=== PATIENT | male | born 1960 | race African-American/Black ===

== ENCOUNTER 2016-09-15 11:46 | Inpatient (IN) | payer OTHER ==
[~2016-09-15] VITALS: Ht 172.7 cm; Wt 88.4 kg
[~2016-09-15 11:46] MED LIST: ALDACTONE25 MG PO; COREG3.125 M1 PO; FURO40I IV; K-DUR20 MEQ PO; LASIX20 MG PO; LISINOPRIL2.5 MG PO; PERCOCET 5/31 TABLET PO; SIMVASTATIN5 MG PO; ZANTAC300 MG PO
[2016-09-15 13:14] LABS: HEMATOCRIT 50.8 % (38.0-50.0); MCH 26.3 PG (29.0-34.0); MCHC 32.9 G/DL (30.0-36.0); MCV 80.1 FL (86-99); RBC DIS.WIDTH-CV 18.6 % (11.8-14.6); RBC DIS.WIDTH-SD 49.9 % (39-53); RED BLOOD COUNT 6.34 M/uL (4.00-5.50); WHITE BLOOD COUNT 9.9 K/uL (4.1-10.2)
[2016-09-15 13:24] LABS: CHLORIDE 108 mEq/L (99-109); POTASSIUM 3.4 mEq/L (3.7-5.4); SODIUM 138 mEq/L (136-147)
[2016-09-15 13:26] LABS: GLUCOSE 89 mg/dL (70-99)
[2016-09-15 13:27] LABS: ANION GAP 9 MEQ/L (2-14)
[2016-09-15 13:28] LABS: TOTAL BILIRUBIN 1.6 mg/dL (0.0-1.0)
[2016-09-15 13:30] LABS: ALKALINE PHOSPHATASE 98 IU/L (3-129); GFR ESTIMATE (CALCULATED) > 59 mL/min/
[2016-09-15 13:31] LABS: UREA NITROGEN (BUN) 18 mg/dL (9-23)
[2016-09-15 13:32] LABS: DIRECT BILIRUBIN 0.7 mg/dL (0.0-0.3)
[2016-09-15 13:33] LABS: LIPASE 31 U/L (1.0-51.0)
[2016-09-15 13:39] LABS: TROP-I INTERPRETATION NEGATIVE; TROPONIN-I 0.19 ng/mL (0.0-0.30)
[2016-09-15 15:08] LABS: MEAN PLAT.VOLUME 10.7 uM^3 (9.0-12.4); PLAT.SUFFICIENCY ADEQUATE; PLATELET COUNT 265 K/uL (156-360)
[2016-09-15 15:24] LABS: TROP-I INTERPRETATION INDETERMINATE; TROPONIN-I 0.31 ng/mL (0.0-0.30)
[2016-09-15 15:45] LABS: INTER. NORMALIZED RATIO 1.4; PTT 28.5 (25-32)
[2016-09-15] MEDS ORDERED: ASPIRIN81 M2 PO (16:44)
[2016-09-15] MEDS ORDERED: COLCRYS0.6 MG PO (16:44)
[2016-09-15] MEDS ORDERED: ALLOPURINOL300 MG PO (16:45)
[2016-09-15] MEDS ORDERED: AMIODARONE HCL200 MG PO (16:45)
[2016-09-15] MEDS ORDERED: A AND D OINTM42.5 GM TP (16:46)
[2016-09-15] MEDS ORDERED: VITAMIN E TP (16:47)
[2016-09-15] MEDS ORDERED: PRINIVIL5 MG PO (17:29)
[2016-09-15] MEDS ORDERED: FUROSEMIDE40 MG PO (17:30)
[2016-09-15] MEDS ORDERED: KLOR-CON M2020 MEQ PO (17:30)
[2016-09-15 21:35] VITALS: BP 108/71
[2016-09-15 22:12] LABS: TROP-I INTERPRETATION INDETERMINATE; TROPONIN-I 0.47 ng/mL (0.0-0.30)
[2016-09-15 23:47] VITALS: BP 119/82
[2016-09-16] VITALS (7 sets, daily range): BP systolic 80–122; BP diastolic 56–85
[2016-09-16 07:10] LABS: HEMATOCRIT 46.4 % (38.0-50.0); MCH 26.3 PG (29.0-34.0); MCHC 32.8 G/DL (30.0-36.0); MCV 80.1 FL (86-99); MEAN PLAT.VOLUME 11.6 uM^3 (9.0-12.4); PLATELET COUNT 277 K/uL (156-360); RBC DIS.WIDTH-CV 18.6 % (11.8-14.6); RBC DIS.WIDTH-SD 50.3 % (39-53); RED BLOOD COUNT 5.79 M/uL (4.00-5.50); WHITE BLOOD COUNT 10.1 K/uL (4.1-10.2)
[2016-09-16 07:32] LABS: TROP-I INTERPRETATION NEGATIVE; TROPONIN-I 0.29 ng/mL (0.0-0.30)
[2016-09-16 07:33] LABS: ANION GAP 10 MEQ/L (2-14); CHLORIDE 107 MEQ/L (99-109); GFR ESTIMATE (CALCULATED) > 59 mL/min/; GLUCOSE 77 mg/dL (70-99); POTASSIUM 3.9 MEQ/L (3.7-5.4); SAMPLE HEMOLYSIS CHECK 0; SAMPLE ICTERIC CHECK 0; SAMPLE LIPEMIA CHECK 0; SODIUM 140 MEQ/L (136-147); UREA NITROGEN (BUN) 20 mg/dL (9-23)
[2016-09-16 17:55] LABS: ADD MIUA? NO; BILIRUBIN NEGATIVE; BLOOD NEGATIVE; GLUCOSE (STRIP) NEGATIVE; KETONES NEGATIVE; LEUKOCYTES NEGATIVE; NITRITE NEGATIVE; PROTEIN (STRIP) NEGATIVE; SPECIFIC GRAVITY 1.018 (1.000-1.030)
[2016-09-16 18:01] LABS: COLOR DK YELLOW ((YELLOW))
[2016-09-17] VITALS (18 sets, daily range): BP systolic 90–121; BP diastolic 60–87
[2016-09-17 06:08] LABS: BASOPHIL COUNT 0.1 K/uL (0-0.1); EOSINOPHIL (%) 4.1 % (0-5); EOSINOPHIL COUNT 0.4 K/uL (0-0.3); HEMATOCRIT 47.6 % (38.0-50.0); IMMATURE GRANULOCYTE (%) 0.6 % (0.0-0.7); IMMATURE GRANULOCYTE COUNT 0.1 K/uL; INSTRUMENT ABS NEUTROPHIL CT 7.8 K/uL; LYMPHOCYTE COUNT 1.4 K/uL (1.0-2.8); MCH 26.6 PG (29.0-34.0); MCHC 33.2 G/DL (30.0-36.0); MCV 80.1 FL (86-99); MEAN PLAT.VOLUME 11.1 uM^3 (9.0-12.4); MONOCYTE (%) 5.1 % (3-12); MONOCYTE COUNT 0.5 K/uL (0-0.8); NEUTROPHIL (%) 75.6 % (45-76); NEUTROPHIL COUNT 7.8 K/uL (1.8-6.4); PLATELET COUNT 297 K/uL (156-360); RBC DIS.WIDTH-CV 18.6 % (11.8-14.6); RBC DIS.WIDTH-SD 49.4 % (39-53); RED BLOOD COUNT 5.94 M/uL (4.00-5.50); WHITE BLOOD COUNT 10.3 K/uL (4.1-10.2)
[2016-09-17 06:45] LABS: ANION GAP 9 MEQ/L (2-14); CHLORIDE 109 MEQ/L (99-109); GFR ESTIMATE (CALCULATED) > 59 mL/min/; GLUCOSE 79 mg/dL (70-99); SAMPLE HEMOLYSIS CHECK 0; SAMPLE ICTERIC CHECK 0; SAMPLE LIPEMIA CHECK 0; SODIUM 138 MEQ/L (136-147); UREA NITROGEN (BUN) 27 mg/dL (9-23)
[2016-09-17 06:52] LABS: POTASSIUM 4.8 MEQ/L (3.7-5.4)
[2016-09-17 15:56] LABS: METH RESISTANT S AUREUS PCR NEGATIVE (NEGATIVE)
[2016-09-17 16:07] LABS: PROBE CHECK PASS; SPECIMEN PROCESSING CONTROL PASS
[2016-09-17 16:46] LABS: ANION GAP 8 MEQ/L (2-14); CHLORIDE 109 MEQ/L (99-109); GFR ESTIMATE (CALCULATED) 58 mL/min/; GLUCOSE 101 mg/dL (70-99); POTASSIUM 4.3 MEQ/L (3.7-5.4); SAMPLE HEMOLYSIS CHECK 0; SAMPLE ICTERIC CHECK 0; SAMPLE LIPEMIA CHECK 0; SODIUM 138 MEQ/L (136-147); UREA NITROGEN (BUN) 27 mg/dL (9-23)
[2016-09-18] VITALS (24 sets, daily range): BP systolic 100–135; BP diastolic 54–92
[2016-09-18 06:03] LABS: HEMATOCRIT 46.2 % (38.0-50.0); MCH 26.1 PG (29.0-34.0); MCHC 32.7 G/DL (30.0-36.0); MCV 79.8 FL (86-99); MEAN PLAT.VOLUME 10.7 uM^3 (9.0-12.4); PLATELET COUNT 251 K/uL (156-360); RBC DIS.WIDTH-CV 18.4 % (11.8-14.6); RED BLOOD COUNT 5.79 M/uL (4.00-5.50); WHITE BLOOD COUNT 10.8 K/uL (4.1-10.2)
[2016-09-18 09:36] LABS: ANION GAP 9 MEQ/L (2-14); CHLORIDE 106 MEQ/L (99-109); GFR ESTIMATE (CALCULATED) > 59 mL/min/; GLUCOSE 73 mg/dL (70-99); MAGNESIUM 1.7 mg/dl (1.3-2.7); POTASSIUM 4.4 MEQ/L (3.7-5.4); SAMPLE HEMOLYSIS CHECK 0; SAMPLE ICTERIC CHECK 0; SAMPLE LIPEMIA CHECK 0; SODIUM 138 MEQ/L (136-147); UREA NITROGEN (BUN) 26 mg/dL (9-23)
[2016-09-18 18:43] LABS: ANION GAP 9 MEQ/L (2-14); CHLORIDE 103 MEQ/L (99-109); GFR ESTIMATE (CALCULATED) > 59 mL/min/; GLUCOSE 68 mg/dL (70-99); POTASSIUM 4.4 MEQ/L (3.7-5.4); SAMPLE HEMOLYSIS CHECK 0; SAMPLE ICTERIC CHECK 0; SAMPLE LIPEMIA CHECK 0; SODIUM 136 MEQ/L (136-147); UREA NITROGEN (BUN) 24 mg/dL (9-23)
[2016-09-19] VITALS (21 sets, daily range): BP systolic 98–133; BP diastolic 65–93
[2016-09-19 06:29] LABS: ANION GAP 9 MEQ/L (2-14); CHLORIDE 103 MEQ/L (99-109); GFR ESTIMATE (CALCULATED) > 59 mL/min/; GLUCOSE 79 mg/dL (70-99); POTASSIUM 4.5 MEQ/L (3.7-5.4); SAMPLE HEMOLYSIS CHECK 0; SAMPLE ICTERIC CHECK 0; SAMPLE LIPEMIA CHECK 0; SODIUM 137 MEQ/L (136-147); UREA NITROGEN (BUN) 23 mg/dL (9-23)
[2016-09-19 07:15] LABS: URIC ACID 4.9 mg/dL (3.1-9.2)
[2016-09-20] VITALS (10 sets, daily range): BP systolic 97–128; BP diastolic 69–92
[2016-09-20 06:04] LABS: BASOPHIL COUNT 0.1 K/uL (0-0.1); EOSINOPHIL COUNT 0.4 K/uL (0-0.3); IMMATURE GRANULOCYTE (%) 0.8 % (0.0-0.7); IMMATURE GRANULOCYTE COUNT 0.1 K/uL; INSTRUMENT ABS NEUTROPHIL CT 6.7 K/uL; LYMPHOCYTE COUNT 1.1 K/uL (1.0-2.8); MCHC 32.6 G/DL (30.0-36.0); MCV 79.9 FL (86-99); MEAN PLAT.VOLUME 10.8 uM^3 (9.0-12.4); MONOCYTE COUNT 0.4 K/uL (0-0.8); NEUTROPHIL (%) 75.1 % (45-76); NEUTROPHIL COUNT 6.7 K/uL (1.8-6.4); PLATELET COUNT 267 K/uL (156-360); RBC DIS.WIDTH-CV 18.3 % (11.8-14.6); RBC DIS.WIDTH-SD 49.1 % (39-53); RED BLOOD COUNT 5.88 M/uL (4.00-5.50); WHITE BLOOD COUNT 8.9 K/uL (4.1-10.2)
[2016-09-20 06:23] LABS: ANION GAP 9 MEQ/L (2-14); CHLORIDE 103 MEQ/L (99-109); GFR ESTIMATE (CALCULATED) > 59 mL/min/; GLUCOSE 86 mg/dL (70-99); POTASSIUM 4.7 MEQ/L (3.7-5.4); SAMPLE HEMOLYSIS CHECK 0; SAMPLE ICTERIC CHECK 0; SAMPLE LIPEMIA CHECK 0; SODIUM 136 MEQ/L (136-147); UREA NITROGEN (BUN) 21 mg/dL (9-23)
[2016-09-21 04:05] VITALS: BP 117/76
[2016-09-21 05:49] LABS: BASOPHIL COUNT 0.1 K/uL (0-0.1); EOSINOPHIL (%) 5.6 % (0-5); EOSINOPHIL COUNT 0.6 K/uL (0-0.3); HEMATOCRIT 47.5 % (38.0-50.0); IMMATURE GRANULOCYTE (%) 0.9 % (0.0-0.7); IMMATURE GRANULOCYTE COUNT 0.1 K/uL; LYMPHOCYTE COUNT 1.2 K/uL (1.0-2.8); MCH 26.2 PG (29.0-34.0); MCHC 32.8 G/DL (30.0-36.0); MCV 79.7 FL (86-99); MEAN PLAT.VOLUME 10.5 uM^3 (9.0-12.4); MONOCYTE (%) 5.2 % (3-12); MONOCYTE COUNT 0.6 K/uL (0-0.8); NEUTROPHIL (%) 75.8 % (45-76); PLATELET COUNT 294 K/uL (156-360); RBC DIS.WIDTH-CV 17.9 % (11.8-14.6); RBC DIS.WIDTH-SD 48.1 % (39-53); RED BLOOD COUNT 5.96 M/uL (4.00-5.50); WHITE BLOOD COUNT 10.6 K/uL (4.1-10.2)
[2016-09-21 06:12] LABS: ANION GAP 9 MEQ/L (2-14); CHLORIDE 103 MEQ/L (99-109); GFR ESTIMATE (CALCULATED) > 59 mL/min/; GLUCOSE 94 mg/dL (70-99); MAGNESIUM 1.9 mg/dl (1.3-2.7); POTASSIUM 4.3 MEQ/L (3.7-5.4); SAMPLE HEMOLYSIS CHECK 0; SAMPLE ICTERIC CHECK 0; SAMPLE LIPEMIA CHECK 0; SODIUM 134 MEQ/L (136-147); UREA NITROGEN (BUN) 26 mg/dL (9-23)
[2016-09-21 07:50] VITALS: BP 108/71
[2016-09-21 11:43] VITALS: BP 92/60
[2016-09-21 15:59] VITALS: BP 111/54
[2016-09-21 19:36] VITALS: BP 115/79
[2016-09-22 00:13] VITALS: BP 96/70
[2016-09-22 04:19] VITALS: BP 114/77
[2016-09-22 05:35] LABS: BASOPHIL COUNT 0.1 K/uL (0-0.1); EOSINOPHIL (%) 4.4 % (0-5); EOSINOPHIL COUNT 0.5 K/uL (0-0.3); HEMATOCRIT 46.8 % (38.0-50.0); IMMATURE GRANULOCYTE COUNT 0.1 K/uL; INSTRUMENT ABS NEUTROPHIL CT 7.5 K/uL; LYMPHOCYTE COUNT 1.3 K/uL (1.0-2.8); MCHC 32.7 G/DL (30.0-36.0); MCV 79.6 FL (86-99); MONOCYTE (%) 6.7 % (3-12); MONOCYTE COUNT 0.7 K/uL (0-0.8); NEUTROPHIL (%) 73.8 % (45-76); NEUTROPHIL COUNT 7.5 K/uL (1.8-6.4); PLATELET COUNT 305 K/uL (156-360); RBC DIS.WIDTH-CV 18.4 % (11.8-14.6); RBC DIS.WIDTH-SD 48.3 % (39-53); RED BLOOD COUNT 5.88 M/uL (4.00-5.50); WHITE BLOOD COUNT 10.2 K/uL (4.1-10.2)
[2016-09-22 05:56] LABS: ANION GAP 8 MEQ/L (2-14); CHLORIDE 102 MEQ/L (99-109); GFR ESTIMATE (CALCULATED) > 59 mL/min/; GLUCOSE 80 mg/dL (70-99); MAGNESIUM 1.8 mg/dl (1.3-2.7); POTASSIUM 4.6 MEQ/L (3.7-5.4); SAMPLE HEMOLYSIS CHECK 0; SAMPLE ICTERIC CHECK 0; SAMPLE LIPEMIA CHECK 0; SODIUM 134 MEQ/L (136-147); UREA NITROGEN (BUN) 31 mg/dL (9-23)
[2016-09-22 07:46] VITALS: BP 90/62
[2016-09-22 11:56] VITALS: BP 99/72
[2016-09-22] MEDS ORDERED: FUROSEMIDE40 MG PO (13:08)
[2016-09-22] MEDS ORDERED: SPIRONOLACTONE25 MG PO (13:08)
== END 2016-09-22 17:14 | DRG 280 ==
LOC: EME 11:46 → 4SOUTH 17:55 → EDOF 17:55 → 4WEST 17:55 → 4SOUTH 21:30 → 4WEST 09-17 13:58 → 3EAST 09-20 15:43
PROVIDERS: Emergency Medicine; Family Medicine; Internal Medicine; Internal Medicine Cardiovascular Disease; Internal Medicine Critical Care Medicine; Internal Medicine Nephrology
PROC: 02HV33Z Insertion of Infusion Device into Superior Vena Cava, Percutaneous Approach (ICD-10-PCS; principal; 2016-09-17)
DX: I11.0 Hypertensive heart disease with heart failure (principal); R57.0 Cardiogenic shock; I21.4 Non-ST elevation (NSTEMI) myocardial infarction; I24.9 Acute ischemic heart disease, unspecified; I31.3 Pericardial effusion (noninflammatory); N17.9 Acute kidney failure, unspecified; I50.23 Acute on chronic systolic (congestive) heart failure; E87.6 Hypokalemia; I42.0 Dilated cardiomyopathy; I27.2 Other secondary pulmonary hypertension; M10.9 Gout, unspecified; I25.10 Atherosclerotic heart disease of native coronary artery without angina pectoris; I48.2 Chronic atrial fibrillation; E78.5 Hyperlipidemia, unspecified; Z95.810 Presence of automatic (implantable) cardiac defibrillator; E66.9 Obesity, unspecified; I07.1 Rheumatic tricuspid insufficiency; R74.8 Abnormal levels of other serum enzymes; E86.0 Dehydration
CPT/HCPCS: 71010; 74020; 76705; 80048; 80048 91; 80076; 81003; 83690; 83735; 83880; 84100; 84484; 84550; 85025; 85027; 85610; 85730; 87641; 93005; 93306; 99281; 99285; J1250; J1644; J1885; J1940; J3475; J7040; P9047

== ENCOUNTER 2017-02-20 20:15 | Emergency (ER) | payer OTHER ==
[~2017-02-20] VITALS: Ht 172.7 cm; Wt 95.4 kg
[~2017-02-20 20:15] MED LIST changes: +A AND D OINTM42.5 GM TP; +ALLOPURINOL300 MG PO; +AMIODARONE HCL200 MG PO; +ASPIRIN81 M2 PO; +COLCRYS0.6 MG PO; +FUROSEMIDE40 MG PO; +KLOR-CON M2020 MEQ PO; +PRINIVIL5 MG PO; +SPIRONOLACTONE25 MG PO; +VITAMIN E TP
[2017-02-20 20:46] LABS: HEMATOCRIT 52.6 % (38.0-50.0); MCH 26.3 PG (29.0-34.0); MCHC 32.7 G/DL (30.0-36.0); MCV 80.4 FL (86-99); MEAN PLAT.VOLUME 10.2 uM^3 (9.0-12.4); PLATELET COUNT 398 K/uL (156-360); RBC DIS.WIDTH-CV 19.2 % (11.8-14.6); RBC DIS.WIDTH-SD 50.5 % (39-53); RED BLOOD COUNT 6.54 M/uL (4.00-5.50); WHITE BLOOD COUNT 13.1 K/uL (4.1-10.2)
[2017-02-20 20:48] LABS: CARBON DIOXIDE (BICARBONATE) 28.3 MEQ/L (20-31)
[2017-02-20 20:56] LABS: CHLORIDE 109 mEq/L (99-109); POTASSIUM 4.2 mEq/L (3.7-5.4); SODIUM 140 mEq/L (136-147)
[2017-02-20 20:58] LABS: GLUCOSE 80 mg/dL (70-99)
[2017-02-20 20:59] LABS: ANION GAP 8 MEQ/L (2-14)
[2017-02-20 21:02] LABS: GFR ESTIMATE (CALCULATED) > 59 mL/min/; UREA NITROGEN (BUN) 21 mg/dL (9-23)
[2017-02-20 21:07] LABS: TROP-I INTERPRETATION NEGATIVE; TROPONIN-I 0.04 ng/mL (0.0-0.30)
[2017-02-20 23:15] VITALS: BP 104/73
== END 2017-02-20 23:17 ==
LOC: EME → EDBD 20:15 → EME 20:15
PROVIDERS: Emergency Medicine
DX: I50.9 Heart failure, unspecified (principal); I10 Essential (primary) hypertension; Z95.811 Presence of heart assist device; Z79.82 Long term (current) use of aspirin
CPT/HCPCS: 71010; 71020; 80048; 82803; 83605; 83880; 84484; 85027; 87040; 93005; 99281; 99285; J1940

== ENCOUNTER 2017-07-01 12:36 | Emergency (ER) | payer OTHER ==
[~2017-07-01] VITALS: Ht 172.7 cm; Wt 96.3 kg
[2017-07-01 17:10] LABS: HEMATOCRIT 49.6 % (38.0-50.0); HEMOGLOBIN 17.2 G/DL (12.5-16.6); MCH 27.6 PG (29.0-34.0); MCHC 34.7 G/DL (30.0-36.0); MCV 79.6 FL (86-99); RBC DIS.WIDTH-CV 19.4 % (11.8-14.6); RBC DIS.WIDTH-SD 50.5 % (39-53); RED BLOOD COUNT 6.23 M/uL (4.00-5.50); WHITE BLOOD COUNT 24.7 K/uL (4.1-10.2)
[2017-07-01 17:12] LABS: PLATELET COUNT 364 K/uL (156-360)
[2017-07-01 18:01] LABS: ALBUMIN 2.1 g/dL (3.2-4.8); CHLORIDE 104 mEq/L (99-109); POTASSIUM 4.6 mEq/L (3.7-5.4); SODIUM 133 mEq/L (136-147)
[2017-07-01 18:03] LABS: TOTAL PROTEIN 4.2 g/dL (6.4-8.3)
[2017-07-01 18:05] LABS: TOTAL BILIRUBIN 2.2 mg/dL (0.0-1.0)
[2017-07-01 18:07] LABS: ALKALINE PHOSPHATASE 89 IU/L (3-129); CREATININE 1.6 mg/dL (0.6-1.3); GFR ESTIMATE (CALCULATED) 58 mL/min/ (58.99-99999)
[2017-07-01 18:08] LABS: UREA NITROGEN (BUN) 35 mg/dL (9-23)
[2017-07-01 18:09] LABS: AST (GOT) 45 IU/L (2-34)
[2017-07-01 18:10] LABS: ALT (GPT) 24 IU/L (3-49)
[2017-07-01 18:13] LABS: TROP-I INTERPRETATION NEGATIVE; TROPONIN-I 0.04 ng/mL (0.0-0.30)
[2017-07-01 18:15] LABS: GLUCOSE 50 mg/dL (70-99)
[2017-07-01 22:23] VITALS: BP 108/67
== END 2017-07-01 22:26 | disposition short-term general hospital (02) ==
LOC: EME 12:36
PROVIDERS: Emergency Medicine Emergency Medical Services
DX: I13.0 Hypertensive heart and chronic kidney disease with heart failure and stage 1 through stage 4 chronic kidney disease, or unspecified chronic kidney disease (principal); I50.9 Heart failure, unspecified; N18.9 Chronic kidney disease, unspecified; L03.116 Cellulitis of left lower limb; M10.9 Gout, unspecified; Z95.0 Presence of cardiac pacemaker; Z79.82 Long term (current) use of aspirin
CPT/HCPCS: 71046; 80053; 82948; 83880; 84484; 85027; 93005; 99281; 99285; J0295; J1940; J2270; J3370; J7050